=== PATIENT | male | born 1985 | race African-American/Black ===

== ENCOUNTER 2020-02-18 16:31 | Emergency (ER) | payer SELFPAY ==
[~2020-02-18] VITALS: Ht 170.2 cm; Wt 86.8 kg
[2020-02-18 16:31] VITALS: BP 163/93
== END 2020-02-18 17:15 | disposition left against medical advice (07) ==
LOC: ER 16:31
DX: R19.09 Other intra-abdominal and pelvic swelling, mass and lump (principal); Z53.21 Procedure and treatment not carried out due to patient leaving prior to being seen by health care provider

== ENCOUNTER 2020-04-01 14:07 | Emergency (ER) | payer SELFPAY ==
[~2020-04-01] VITALS: Ht 170.2 cm; Wt 88.8 kg
--- NOTE | 2020-04-01 14:36 | PHYS DOC ---
Past History Past Medical History: No Pertinent History Past Surgical History: No Surgical History Alcohol Use: Occasionally General Adult EDM: Chief Complaint: TESTICULAR PAIN OR INJURY HPI: HPI: 34-year-old male presents with right testicle pain. The patient has had intermittent pain for last 1 month. It is always in the right testicle. Over the last couple days the pain is a more consistent and he has noticed a palpable mass at the inferior posterior portion of the right testicle. It is tender to the touch. His testicle is swollen compared to the left. He denies urethral discharge. He has been in a monogamous relationship for 7 months. He is not concerned for STD. Denies trauma. Denies fever chills. Review of Systems: Review of Systems: Constitutional: Denies fever or chills Eyes: Denies change in visual acuity HENT: Denies nasal congestion or sore throat Respiratory: Denies cough or shortness of breath Cardiovascular: Denies chest pain or edema GI: Denies abdominal pain, nausea, vomiting, bloody stools or diarrhea : Right testicle pain Musculoskeletal: Denies back pain or joint pain Integument: Denies rash Neurologic: Denies headache, focal weakness or sensory changes Endocrine: Denies polyuria or polydipsia Lymphatic: Denies swollen glands Psychiatric: Denies depression or anxiety Heart Score: Risk Factors: Risk Factors: DM, Current or recent (<one month) smoker, HTN, HLP, family history of CAD, obesity. Risk Scores: Score 0 - 3: 2.5% MACE over next 6 weeks - Discharge Home Score 4 - 6: 20.3% MACE over next 6 weeks - Admit for Clinical Observation Score 7 - 10: 72.7% MACE over next 6 weeks - Early Invasive Strategies Allergies: Allergies: Allergies Coded Allergies Type Severity Reaction Last Updated Verified shellfish derived Allergy Unknown 04/01/20 Yes Physical Exam: PE: Constitutional: Well developed, well nourished, no acute distress, non-toxic appearance. [] HENT: Normocephalic, atraumatic, bilateral external ears normal, oropharynx moist, no oral exudates, nose normal. [] Eyes: PERRLA, EOMI, conjunctiva normal, no discharge. [] Neck: Normal range of motion, no tenderness, supple, no stridor. [] Cardiovascular:Heart rate regular rhythm, no murmur [] Lungs & Thorax: Bilateral breath sounds clear to auscultation [] Abdomen: Bowel sounds normal, soft, no tenderness, no masses, no pulsatile masses. [] Skin: Warm, dry, no erythema, no rash. [] Back: No tenderness, no CVA tenderness. [] Extremities: No tenderness, no cyanosis, no clubbing, ROM intact, no edema. [] Neurologic: Alert and oriented X 3, normal motor function, normal sensory function, no focal deficits noted. [] Psychologic: Affect normal, judgement normal, mood normal. : Normally descended testicles, right testicle larger than left, palpable 1 cm x 2 cm mass at the inferior posterior pole of the right testicle. No obvious lesions or rash. [] Current Patient Data: Vital Signs: Vital Signs Date Time Temp Pulse Resp B/P (MAP) Pulse Ox O2 Delivery O2 Flow Rate FiO2 04/01/20 14:20 98.1 99 16 147/90 (109) 99 Room Air EKG: EKG: [] Radiology/Procedures: Radiology/Procedures: [] Impressions: EXAM: TESTICULAR/SCROTUM 04/01/2020 2:28 PM INDICATION: Right-sided testicular pain, mass. COMPARISON: None TECHNIQUE: Grayscale and color Doppler ultrasound images of the testicles and scrotum. FINDINGS: The right testicle measures 4.4 x 3.1 x 2.1 cm. The left testicle measures 4.7 x 3.2 x 2.3 cm. Both testicles are homogeneous with normal echogenicity. There is normal arterial and venous Doppler blood flow to both testicles. No testicular mass. The epididymides are normal in appearance. The patient's area of palpable abnormality correlates with the right epididymal body, which is normal in appearance. Small left hydrocele. There are a few probable small left varicoceles. IMPRESSION: 1. No evidence of testicular torsion, epididymitis-orchitis, or testicular mass. The area of abnormality correlates with the right epididymal body, which is normal in appearance. 2. Small left hydrocele. Few left varicoceles. Electronically signed by: Romelia Burks MD (04/01/2020 3:55 PM) [id number] DICTATED AND SIGNED BY: ROMELIA BURKS MD DATE: 04/01/20 0057 CC: LONG,JAYA DO; PCP,NO ~ Course & Med Decision Making: Course & Med Decision Making Pertinent Labs and Imaging studies reviewed. (See chart for details) The patient's ultrasound is within normal limits. It does not show epididymitis or any other concerning findings. See official report for more details. He does not want to do prophylactic antibiotics. He will go to the health department for STD evaluation. He is stable for discharge at this time. [] Dragon Disclaimer: Dragon Disclaimer: This electronic medical record was generated, in whole or in part, using a voice recognition dictation system. Departure Departure: Impression: Primary Impression: Right testicular pain Disposition: HOME/RESIDENCE PRIOR TO ADM Condition: STABLE Referrals: PCP,NO (PCP) Patient Instructions: Testicular Problems and Self-Exam Justification of Admission: Justification of Admission: Justification of Admission Dx: N/A JAYA LONG DO Apr 01, 2020 14:36
[2020-04-01 14:53] LABS: BACTERIA,URINE 0 /HPF (0-FEW); BILIRUBIN,URINE NEG (NEG); CLARITY,URINE CLEAR; COLOR,URINE YELLOW; GLUCOSE,URINE NEG (NEG); NITRITE,URINE NEG (NEG); RBC,URINE 0 /HPF (0-2); SQUAMOUS EPITHELIAL CELL,UR FEW /LPF; UROBILINOGEN,URINE 0.2 mg/dL (0.2 mg/dL); WBC,URINE 0 /HPF (0-4)
[2020-04-01 14:54] LABS: AMORPHOUS SEDIMENT,UR PRESENT /HPF
[2020-04-01 15:57] VITALS: BP 134/71
--- NOTE | 2020-04-01 15:58 | RAD ---
EXAM: TESTICULAR/SCROTUM 04/01/2020 2:28 PM INDICATION: Right-sided testicular pain, mass. COMPARISON: None TECHNIQUE: Grayscale and color Doppler ultrasound images of the testicles and scrotum. FINDINGS: The right testicle measures 4.4 x 3.1 x 2.1 cm. The left testicle measures 4.7 x 3.2 x 2.3 cm. Both testicles are homogeneous with normal echogenicity. There is normal arterial and venous Doppler blood flow to both testicles. No testicular mass. The epididymides are normal in appearance. The patient's area of palpable abnormality correlates with the right epididymal body, which is normal in appearance. Small left hydrocele. There are a few probable small left varicoceles. IMPRESSION: 1. No evidence of testicular torsion, epididymitis-orchitis, or testicular mass. The area of abnormality correlates with the right epididymal body, which is normal in appearance. 2. Small left hydrocele. Few left varicoceles. Electronically signed by: Romelia Burks MD (04/01/2020 3:55 PM) [id number]
== END 2020-04-01 16:24 | disposition home or self-care (01) ==
LOC: ER 14:07
DX: N50.811 Right testicular pain (principal); Z91.013 Allergy to seafood
CPT/HCPCS: 76870; 81001; 99284-25